=== PATIENT | female | born 1985 | race Caucasian/White ===

== ENCOUNTER 2020-10-28 00:46 | Emergency (ER) | payer OTHER ==
[~2020-10-28] VITALS: Ht 172.7 cm; Wt 95.3 kg
[2020-10-28 00:48] VITALS: BP 144/73
[2020-10-28] MEDS ORDERED: NEUR300C PO (01:59)
[2020-10-28] MEDS ORDERED: VALT1TAB PO (01:59)
[2020-10-28] MEDS ORDERED: valACYclovir HCL 500 MG TAB PO ONE (02:00)
== END 2020-10-28 02:21 | disposition home or self-care (01) ==
LOC: M ED 00:46
DX: B02.9 Zoster without complications (principal)